=== PATIENT | female | born 1960 | race Caucasian/White ===

== ENCOUNTER 2016-07-27 06:54 | Emergency (ER) | payer BC ==
[~2016-07-27] VITALS: Ht 165.1 cm; Wt 104.5 kg
[~2016-07-27 06:54] MED LIST: ALEVE 220MG220 MG PO; MOTRIN 800800 MG/TAB PO; NORCO 325 MG-51 TAB PO; NORCO 325 MG-7.1 TAB PO; PERCOCET 325 MG1 TA2 PO; TYLENOL 500MG500 MG PO; ULTRAM 50MG TAB50 MG PO; ZOFRAN 4MG T4 MG/TAB PO; ZOVIRAX800 MG PO
[2016-07-27 07:59] LABS: PH 6 (5-8); URINE APPEARANCE Clear; URINE BACTERIA Rare /hpf; URINE BILIRUBIN Negative (NEGATIVE); URINE BLOOD Negative (NEGATIVE); URINE COLOR Yellow; URINE GLUCOSE Negative (NEGATIVE); URINE KETONE Negative (NEGATIVE); URINE RBC 0-2 /hpf; URINE UROBILINOGEN Negative (NEGATIVE)
[2016-07-27] MEDS ORDERED: FLEXERIL 1010 MG/TAB PO (08:51)
[2016-07-27] MEDS ORDERED: NORCO 325 MG-51 TAB PO (08:51)
[2016-07-27 09:12] VITALS: BP 135/68; PULSE 77; TEMP 98.1
== END 2016-07-27 09:12 | disposition home or self-care (01) ==
LOC: COL.ER 06:54
PROVIDERS: Nurse Practitioner
DX: M54.5 Low back pain (principal)
CPT/HCPCS: J1885; J3360

== ENCOUNTER 2017-12-11 09:55 | Emergency (ER) | payer SELFPAY ==
[~2017-12-11] VITALS: Ht 162.6 cm; Wt 72.0 kg
[~2017-12-11 09:55] MED LIST changes: +FLEXERIL 1010 MG/TAB PO
[2017-12-11 09:58] VITALS: TEMP 97.7
[2017-12-11 10:27] LABS: BASO # 0.1 (0.0-0.2); BASO % 0.8 % (0.0-2.0); EOS # 0.2 (0.0-0.7); EOS % 2.1 % (0-4.0); GRAN # 4.1 (1.4-6.5); GRAN % 56.2 % (42.2-75.2); HEMATOCRIT 43.9 % (37.0-47.0); HEMOGLOBIN 14.8 g/dl (12.5-16.0); LYMPH # 2.5 (1.2-3.4); LYMPH % 34.4 % (20.0-51.0); MEAN CELL VOLUME 88 fl (80.0-100.0); MEAN CORPUSCULAR HEMOGLOBIN 30 pg (27.0-31.0); MEAN CORPUSCULAR HGB CONC 34 g/dl (33.0-37.0); MEAN PLATELET VOLUME 11.1 fl (7.4-10.4); MONO # 0.4 (0.1-0.6); MONO % 6.1 % (1.7-9.3); PLATELET COUNT 271 K/mm3 (130-400); REDCELL DISTRIBUTION WIDTH-CV 13.2 % (11.5-14.5)
[2017-12-11 10:33] LABS: PROTHROMBIN TIME 10.9 SECONDS (9.7-12.8)
[2017-12-11 10:38] LABS: ALANINE AMINOTRANSFERASE 28 U/L (9-52); ALBUMIN 3.8 gm/dL (3.5-5.0); ALKALINE PHOSPHATASE 124 U/L (50-136); ANION GAP 13 mmol/L (7-16); AST,SGOT 23 U/L (15-37); BILIRUBIN,TOTAL 0.6 mg/dL (0.0-1.0); BLOOD UREA NITROGEN 14 mg/dL (7-17); CALCIUM 9.1 mg/dL (8.4-10.2); CARBON DIOXIDE 25 mmol/L (22-30); CHLORIDE 105 mmol/L (98-107); GLUCOSE 124 mg/dL (74-106); POTASSIUM 4.1 mmol/L (3.4-5.0); SODIUM 143 mmol/L (137-145); TOTAL PROTEIN 7.8 gm/dL (6.4-8.2)
[2017-12-11 10:50] LABS: TROPONIN-I < 0.012 ng/mL (0.000-0.034)
[2017-12-11 13:00] VITALS: BP 122/63; PULSE 66
== END 2017-12-11 13:00 | disposition home or self-care (01) ==
LOC: COL.ER 09:55
PROVIDERS: Emergency Medicine
DX: R20.2 Paresthesia of skin (principal); Z86.73 Personal history of transient ischemic attack (TIA), and cerebral infarction without residual deficits
CPT/HCPCS: J7030

== ENCOUNTER 2018-01-11 12:57 | Emergency (ER) | payer SELFPAY ==
[~2018-01-11] VITALS: Ht 162.6 cm; Wt 113.6 kg
[2018-01-11 12:59] VITALS: BP 184/82; PULSE 73; TEMP 98.2
== END 2018-01-11 14:59 | disposition home or self-care (01) ==
LOC: COL.ER 12:57
DX: M76.61 Achilles tendinitis, right leg (principal); Z87.891 Personal history of nicotine dependence

== ENCOUNTER 2018-09-04 14:22 | Emergency (ER) | payer SELFPAY ==
[~2018-09-04] VITALS: Ht 162.6 cm; Wt 113.6 kg
[2018-09-04 14:28] VITALS: TEMP 97.1
[2018-09-04 15:16] LABS: BASO # 0.1 (0.0-0.2); BASO % 1.1 % (0.0-2.0); EOS # 0.1 (0.0-0.7); EOS % 2.3 % (0-4.0); GRAN # 3.4 (1.4-6.5); GRAN % 60.3 % (42.2-75.2); HEMATOCRIT 41.8 % (37.0-47.0); HEMOGLOBIN 13.5 g/dl (12.5-16.0); LYMPH # 1.7 (1.2-3.4); LYMPH % 29.6 % (20.0-51.0); MEAN CELL VOLUME 94 fl (80.0-100.0); MEAN CORPUSCULAR HEMOGLOBIN 30 pg (27.0-31.0); MEAN CORPUSCULAR HGB CONC 32 g/dl (33.0-37.0); MONO # 0.4 (0.1-0.6); MONO % 6.3 % (1.7-9.3); PLATELET COUNT 269 K/mm3 (130-400); RED BLOOD COUNT 4.47 M/mm3 (4.10-5.30); REDCELL DISTRIBUTION WIDTH-CV 13.6 % (11.5-14.5)
[2018-09-04 15:26] LABS: ALANINE AMINOTRANSFERASE 23 U/L (9-52); ALBUMIN 3.6 gm/dL (3.5-5.0); ALKALINE PHOSPHATASE 101 U/L (50-136); ANION GAP 7 mmol/L (7-16); AST,SGOT 26 U/L (15-37); BILIRUBIN,TOTAL 0.4 mg/dL (0.0-1.0); BLOOD UREA NITROGEN 11 mg/dL (7-17); C-REACTIVE PROTEIN 2.8 mg/dL (0.0-0.9); CALCIUM 8.8 mg/dL (8.4-10.2); CARBON DIOXIDE 25 mmol/L (22-30); CHLORIDE 105 mmol/L (98-107); CREATININE, serum 0.73 mg/dL (0.52-1.25); GLUCOSE 118 mg/dL (74-106); LIPASE 297 U/L (23-300); POTASSIUM 3.9 mmol/L (3.4-5.0); SODIUM 136 mmol/L (137-145)
[2018-09-04 15:38] LABS: TROPONIN-I < 0.012 ng/mL (0.000-0.035)
[2018-09-04] MEDS ORDERED: PROTONIX 40MG T40 MG PO (17:58)
[2018-09-04 18:30] VITALS: BP 132/68; PULSE 60
== END 2018-09-04 18:30 | disposition home or self-care (01) ==
LOC: COL.ER 14:22
PROVIDERS: Emergency Medicine
DX: R07.89 Other chest pain (principal); K21.9 Gastro-esophageal reflux disease without esophagitis

== ENCOUNTER 2019-06-01 08:03 | Emergency (ER) | payer SELFPAY ==
[~2019-06-01] VITALS: Ht 162.6 cm; Wt 113.6 kg
[~2019-06-01 08:03] MED LIST changes: +PROTONIX 40MG T40 MG PO
[2019-06-01 08:07] VITALS: TEMP 97.5
[2019-06-01 08:51] LABS: BASO # 0.1 (0.0-0.2); BASO % 1.2 % (0.0-2.0); EOS # 0.1 (0.0-0.7); EOS % 1.9 % (0-4.0); GRAN # 3.6 (1.4-6.5); HEMATOCRIT 44.3 % (37.0-47.0); HEMOGLOBIN 14.5 g/dl (12.5-16.0); LYMPH # 1.6 (1.2-3.4); LYMPH % 27.1 % (20.0-51.0); MEAN CELL VOLUME 91 fl (80.0-100.0); MEAN CORPUSCULAR HEMOGLOBIN 30 pg (27.0-31.0); MEAN CORPUSCULAR HGB CONC 33 g/dl (33.0-37.0); MEAN PLATELET VOLUME 10.7 fl (7.4-10.4); MONO # 0.4 (0.1-0.6); MONO % 7.5 % (1.7-9.3); PLATELET COUNT 274 K/mm3 (130-400); RED BLOOD COUNT 4.85 M/mm3 (4.10-5.30); REDCELL DISTRIBUTION WIDTH-CV 13.7 % (11.5-14.5)
[2019-06-01 09:04] LABS: ALANINE AMINOTRANSFERASE 25 U/L (9-52); ALBUMIN 4.1 gm/dL (3.5-5.0); ALKALINE PHOSPHATASE 90 U/L (50-136); ANION GAP 8 mmol/L (7-16); AST,SGOT 27 U/L (15-37); BILIRUBIN,TOTAL 0.5 mg/dL (0.0-1.0); BLOOD UREA NITROGEN 13 mg/dL (7-17); C-REACTIVE PROTEIN 1.6 mg/dL (0.0-0.9); CALCIUM 9.3 mg/dL (8.4-10.2); CARBON DIOXIDE 25 mmol/L (22-30); CHLORIDE 105 mmol/L (98-107); CREATININE, serum 0.75 (0.52-1.25); GLUCOSE 112 mg/dL (74-106); LIPASE 138 U/L (23-300); POTASSIUM 4.3 mmol/L (3.4-5.0); SODIUM 138 mmol/L (137-145); TOTAL PROTEIN 7.8 gm/dL (6.4-8.2)
[2019-06-01 09:19] LABS: TROPONIN-I < 0.012 ng/mL (0.000-0.035)
[2019-06-01] MEDS ORDERED: PREDNISONE20 MG PO (10:03)
[2019-06-01 10:14] VITALS: BP 153/76; PULSE 92
== END 2019-06-01 10:20 | disposition home or self-care (01) ==
LOC: COL.ER 08:03
PROVIDERS: Physician Assistant
DX: R06.00 Dyspnea, unspecified (principal); K21.9 Gastro-esophageal reflux disease without esophagitis; Z98.51 Tubal ligation status
CPT/HCPCS: J8540

== ENCOUNTER 2021-02-11 11:21 | Emergency (ER) | payer SELFPAY ==
[~2021-02-11] VITALS: Ht 162.6 cm; Wt 117.3 kg
[~2021-02-11 11:21] MED LIST changes: +PREDNISONE20 MG PO
[2021-02-11 12:17] VITALS: TEMP 98.2
[2021-02-11] MEDS ORDERED: VALIUM 2MG T2 MG/TAB PO (15:19)
[2021-02-11 15:41] VITALS: BP 169/81; PULSE 81
== END 2021-02-11 15:41 | disposition home or self-care (01) ==
LOC: COL.ER 11:21
DX: M62.830 Muscle spasm of back (principal); Z87.891 Personal history of nicotine dependence; X50.0XXA Overexertion from strenuous movement or load, initial encounter; Y99.0 Civilian activity done for income or pay
CPT/HCPCS: J1885; J3360

== ENCOUNTER 2021-07-22 03:51 | Emergency (ER) | payer SELFPAY ==
[~2021-07-22] VITALS: Ht 162.6 cm; Wt 115.9 kg
[~2021-07-22 03:51] MED LIST changes: +VALIUM 2MG T2 MG/TAB PO
[2021-07-22] MEDS ORDERED: ANTIVERT 25MG25 MG PO (04:13)
[2021-07-22 04:21] VITALS: BP 152/97; PULSE 84; TEMP 98.5
== END 2021-07-22 04:21 | disposition home or self-care (01) ==
LOC: COL.ER 03:51
DX: R42 Dizziness and giddiness (principal); F17.210 Nicotine dependence, cigarettes, uncomplicated

== ENCOUNTER 2021-11-24 10:38 | Emergency (ER) | payer OTHER ==
[~2021-11-24] VITALS: Ht 162.6 cm; Wt 109.1 kg
[~2021-11-24 10:38] MED LIST changes: +ANTIVERT 25MG25 MG PO
[2021-11-24 10:44] VITALS: TEMP 98.2
[2021-11-24 10:57] LABS: BASO # 0.1 K/mm3 (0.0-0.2); BASO % 1.1 % (0.0-2.0); EOS # 0.1 K/mm3 (0.0-0.7); EOS % 1.4 % (0.0-4.0); GRAN % 61.2 % (42.2-75.2); HEMATOCRIT 42.1 % (37.0-47.0); LYMPH # 1.9 K/mm3 (1.2-3.4); LYMPH % 29.6 % (20.0-51.0); MEAN CELL VOLUME 92 fl (80.0-100.0); MEAN CORPUSCULAR HEMOGLOBIN 31 pg (27-31); MEAN CORPUSCULAR HGB CONC 33 g/dl (33.0-37.0); MONO # 0.4 K/mm3 (0.1-0.6); MONO % 6.4 % (1.7-9.3); PLATELET COUNT 263 K/mm3 (130-400); RED BLOOD COUNT 4.58 M/mm3 (4.10-5.30); REDCELL DISTRIBUTION WIDTH-CV 13.2 % (11.5-14.5)
[2021-11-24 11:17] LABS: ALANINE AMINOTRANSFERASE 26 U/L (0-55); ALBUMIN 3.8 gm/dL (3.5-5.0); ALKALINE PHOSPHATASE 87 U/L (40-150); ANION GAP 12 mmol/L (7-16); AST,SGOT 30 U/L (5-34); BILIRUBIN,TOTAL 0.8 mg/dL (0.2-1.2); BLOOD UREA NITROGEN 10 mg/dL (10-20); CARBON DIOXIDE 23 mmol/L (22-29); CHLORIDE 106 mmol/L (98-107); CREATININE, serum 0.76 mg/dL (0.57-1.11); GLUCOSE 105 mg/dL (70-99); POTASSIUM 4.1 mmol/L (3.5-4.5); SODIUM 141 mmol/L (136-145); TOTAL PROTEIN 7.5 gm/dL (6.2-8.1)
[2021-11-24 11:26] LABS: TROPONIN-I < 0.010 ng/mL (0.00-0.033)
[2021-11-24 15:01] VITALS: BP 140/78; PULSE 70
== END 2021-11-24 15:10 | disposition home or self-care (01) ==
LOC: COL.ER 10:38
PROVIDERS: Student in an Organized Health Care Education/Training Program
DX: R07.89 Other chest pain (principal); F17.210 Nicotine dependence, cigarettes, uncomplicated; Z98.61 Coronary angioplasty status; Z28.310 Unvaccinated for COVID-19

== ENCOUNTER 2022-03-18 06:31 | Emergency (ER) | payer SELFPAY ==
[~2022-03-18] VITALS: Ht 165.1 cm; Wt 109.1 kg
[2022-03-18 06:39] VITALS: TEMP 98.2
[2022-03-18 07:10] LABS: BASO # 0.1 K/mm3 (0.0-0.2); BASO % 1.1 % (0.0-2.0); EOS # 0.2 K/mm3 (0.0-0.7); EOS % 2.5 % (0.0-4.0); GRAN # 3.1 K/mm3 (1.4-6.5); GRAN % 50.1 % (42.2-75.2); HEMATOCRIT 43.1 % (37.0-47.0); HEMOGLOBIN 14.6 g/dl (12.5-16.0); LYMPH # 2.3 K/mm3 (1.2-3.4); LYMPH % 37.6 % (20.0-51.0); MEAN CELL VOLUME 92 fl (80.0-100.0); MEAN CORPUSCULAR HEMOGLOBIN 31 pg (27-31); MEAN CORPUSCULAR HGB CONC 34 g/dl (33.0-37.0); MEAN PLATELET VOLUME 11.7 fl (7.4-10.4); MONO # 0.5 K/mm3 (0.1-0.6); MONO % 8.5 % (1.7-9.3); PLATELET COUNT 225 K/mm3 (130-400); RED BLOOD COUNT 4.67 M/mm3 (4.10-5.30); REDCELL DISTRIBUTION WIDTH-CV 13.3 % (11.5-14.5)
[2022-03-18 07:18] LABS: INR 0.9 (0.8-3.0); PROTHROMBIN TIME 10.8 SECONDS (9.7-12.8)
[2022-03-18 07:27] LABS: ALBUMIN 3.5 gm/dL (3.5-5.0); BILIRUBIN,TOTAL 0.3 mg/dL (0.2-1.2); CREATININE, serum 0.73 mg/dL (0.57-1.11); POTASSIUM 4.7 mmol/L (3.5-4.5); TOTAL PROTEIN 7.3 gm/dL (6.2-8.1)
[2022-03-18 07:37] LABS: COLLECTION METHOD CLEAN CATCH
[2022-03-18 07:51] LABS: SQUAMOUS EPITHELIAL 0-2 /hpf (0-10); URINE BACTERIA None Seen /hpf (NONE SEEN); URINE RBC 0-2 /hpf (0-2)
[2022-03-18 07:53] LABS: PH 5.5 (5-8); URINE APPEARANCE Clear (CLEAR/HAZY); URINE BLOOD Negative (NEGATIVE); URINE COLOR Yellow (YELLOW); URINE GLUCOSE Negative (NEGATIVE); URINE KETONE Negative (NEGATIVE); URINE NITRATE Negative (NEGATIVE); URINE PROTEIN(semi-quant) Negative (NEGATIVE); URINE UROBILINOGEN 0.2 (NEGATIVE)
[2022-03-18 10:21] VITALS: BP 157/65; PULSE 78
== END 2022-03-18 10:21 | disposition other institution (70) ==
LOC: COL.ER 06:31
PROVIDERS: Emergency Medicine; Personal Emergency Response Attendant
DX: G45.9 Transient cerebral ischemic attack, unspecified (principal); F17.210 Nicotine dependence, cigarettes, uncomplicated; Z28.310 Unvaccinated for COVID-19
CPT/HCPCS: Q9967